=== PATIENT | male | born 1970 | race Caucasian/White ===

== ENCOUNTER 2021-04-24 15:23 | Emergency (ER) | payer OTHER, SELFPAY ==
--- NOTE | ~2021-04-24 | XR_ITS ---
EXAMINATION: XR chest 2V EXAM DATE: 04/24/2021 16:00 INDICATION: cough, wheezing few days. hx bronchitis . TECHNIQUE: Frontal and lateral projections of the chest obtained and reviewed. There is no prior ric dy for comparison. FINDINGS: The lungs are clear. There are no pleural effusions. The cardiomediastinal silhouette is within normal limits. There is no pneumothorax suspected. The bones and soft tissues are unremarkab le. IMPRESSION: No acute cardiopulmonary findings. Reviewed, dictated and finalized at location B.
[2021-04-24 15:37] VITALS: BP 128/79; PULSE 102; RESP 20; TEMP 36.8; O2SAT 98
--- NOTE | 2021-04-24 15:53 | ED.URI ---
HPI - URI/Sore Throat General Chief Complaint: Upper Respiratory Infection Stated Complaint: congestion Time Seen by Provider: 04/24/21 15:45 Source: patient Mode of arrival: ambulatory Limitations: no limitations History of Present Illness HPI Narrative: Maurilio Luis is a 50 yo male with a PMH of gout who comes to [facility] with complaints of upper respiratory symptoms including cough and tightness since Tuesday. He called his primary care physician but could not get in today Related Data Home Medications Medication Instructions Recorded Confirmed allopurinol 300 mg PO DAILY 04/24/21 04/24/21 Allergies Allergy/AdvReac Type Severity Reaction Status Date / Time No Known Allergies Allergy Verified 04/24/21 15:49 Review of Systems Review of Systems: CONSTITUTIONAL: Denies fever, chills, sweats. EYES: Denies visual changes, redness, discharge. ENT: Denies rhinorrhea, congestion, sore throat, otalgia. CARDIOVASCULAR: Denies chest pain, palpitations, edema. RESPIRATORY: Denies dyspnea, chest tightness,wheezing, has cough GASTROINTESTINAL: Denies abdominal pain, nausea, vomiting, diarrhea. GENITOURINARY: Denies dysuria, hematuria, abnormal discharge SKIN: Denies rash or itching. NEUROLOGIC: Denies numbness, or focal weakness. PSYCHIATRIC: Denies anxiety or depression. [facility] Past Medical History Medical History Gout Social History Social History (Updated 04/24/21 @ 16:01 by Khushbu Harper CNP) Smoking status: Never smoker Alcohol intake: current Comments At time of signature, I agree with nursing past medical, surgical, social and family history. There is no relevant family history pertinent to the presenting complaint. Exam Narrative: GENERAL: This is a well-nourished, well-developed patient, in mild distress. HEAD: normocephalic, atraumatic. EYES: Sclera clear/white. Vision is grossly intact. EARS: External ears normal, Hearing grossly intact. NOSE: External nose normal without nasal discharge, nares without redness, no rhinorrhea. THROAT: Mucous membranes moist, NECK: Neck supple, CARDIOVASCULAR: Regular rate and rhythm without murmurs, gallops, or rubs. RESPIRATORY: Diminished to auscultation. Breath sounds equal bilaterally, diffuse bilateral wheezes, no rales, or rhonchi. GASTROINTESTINAL: Abdomen soft, SKIN: warm, intact with no suspicious lesions or rash, good texture and turgor. NEURO: awake, alert, and oriented to person, place and time. There were no obvious focal neurologic abnormalities. Steady gait EXTREMITIES: Normal range of motion. BACK: Nontender without deformity Course Course Emergency Course: Patient comes with complaints of cough and tightness since Tuesday Chest x-ray done-no acute cardiopulmonary findings, no pneumothorax, no pleural effusion, the cardiomediastinal silhouette is within normal limits soft tissues are unremarkable Started on steroids and albuterol inhaler, Zyrtec codeine cough syrup Vital Signs Vital signs: Vital Signs Temperature 98.3 F 04/24/21 15:37 Pulse Rate 102 H 04/24/21 15:37 Respiratory Rate 20 04/24/21 15:37 Blood Pressure 128/79 04/24/21 15:37 Pulse Oximetry 98 04/24/21 15:37 Temperature 98.3 F 04/24/21 15:37 Pulse Rate 102 H 04/24/21 15:37 Respiratory Rate 20 04/24/21 15:37 Blood Pressure 128/79 04/24/21 15:37 Pulse Oximetry 98 04/24/21 15:37 MDM - URI/Sore Throat Differential Diagnosis Differential diagnosis: Likely upper respiratory infection, sinusitis, viral infection, bronchitis, pharyngitis and other Critical Care Time Critical Care Time Critical Care Time: No Discharge Plan Discharge Clinical Impression: Bronchitis Patient Disposition: Home, Self-Care Condition: Stable Instructions: Antibiotic Form, Acute Bronchitis (ED) Prescriptions: New prednisone 20 mg tablet 40 mg PO DAILY Qty: 10 RF: 0 albuterol s
== END 2021-04-24 16:19 | disposition home or self-care (01) ==
PROVIDERS: Emergency Provider Nurse Practitioner
DX: J40 Bronchitis, not specified as acute or chronic (principal); M10.9 Gout, unspecified
CPT/HCPCS: 71046; 99213; G0463